=== PATIENT | female | born 1960 | race Two or more races ===

== ENCOUNTER 2016-10-27 00:26 | Emergency (ER) | payer OTHER ==
[2016-10-27] MEDS ORDERED: Maalox 30 mL Cup PO ONE (00:30)
[2016-10-27] MEDS ORDERED: Sodium Chloride 0.9% 1,000 ML IV ONE (00:30)
[2016-10-27] MEDS ORDERED: Donnatal Liq 5 ML UDC PO ONE (00:30)
--- NOTE | 2016-10-27 00:30 | ED Physician Chart ---
Chief Complaint/HPI - Patient Information Date Seen:: 10/27/16 Time Seen:: 00:30 Chief Complaint:: abdominal pain History of Present Illness:: 56-year-old female history of hypertension, complains of acute, severe, 10 out of 10, nonradiating, upper abdominal/epigastric pain that started about 1 hour prior to arrival to the ER. Associated nausea but no vomiting. Historian:: Patient Review:: Nurse's Note Reviewed Review of Systems - Review of Systems Other: Complete system review otherwise unremarkable except as noted in HPI. Past Medical History - Past Medical History Past Medical History: HTN Family History: None Social History: Non Smoker, No Alcohol, No Drug Use, Employed Surgical History: Cholecystectomy, Psychiatricy History: None Medication: Reviewed Family Medical History - Family Member Mother History Unknown: Yes Ethnicity: Physical Exam - Physical Examination Other:: INITIAL VITAL SIGNS: Reviewed by me GENERAL: Alert and interactive. No acute distress HEAD: Head is normocephalic and atraumatic EYES: EOMI. . No scleral icterus. No conjunctival injection ENT: Moist mucous membranes. NECK: Supple. No masses. Full range of motion RESPIRATORY: No tachypnea. Clear breath sounds bilaterally. No wheezing, rales, or rhonchi CV: Regular rate and rhythm. No murmurs, rubs, or gallops ABDOMEN: Soft, non-distended, tenderness to palpation of the epigastric region. No guarding. No rebound. No masses. EXTREMITIES: No deformity. No cyanosis. No edema. SKIN: Warm and dry. No obvious rashes. NEUROLOGIC: Alert and oriented. Face is symmetric. Speech is normal. Moves all extremities equally. Motor and sensory distally intact. Labs/Radiology/EKG Results - Lab Results Results: Lab Results 10/27/16 10/27/16 10/27/16 Range/Units 00:45 00:45 00:52 WBC 9.5 (4.8-10.8) Th/cmm RBC 4.27 (3.80-5.10) Mil/cmm Hgb 13.2 (11.7-15.5) gm/dL Hct 38.9 (35.0-45.0) % MCV 91.0 (81-100) fl MCH 31.0 (27.0-31.0) pg MCHC Differential 34.0 (28.0-36.0) pg RDW 13.3 (11.5-20.0) % Plt Count 252 (150-400) Th/cmm MPV 7.9 fl Neutrophils % 62.4 (40.0-80.0) % Lymphocytes % 26.8 (20.0-50.0) % Monocytes % 6.3 (2.0-10.0) % Eosinophils % 3.9 (0.0-5.0) % Basophils % 0.6 (0.0-2.0) % Sodium (136-145) mEq/L Potassium (3.5-5.1) mEq/L Chloride (98-107) mEq/L Carbon Dioxide (21.0-31.0) mEq/L Anion Gap (7.0-16.0) BUN (7-25) mg/dL Creatinine (0.6-1.2) mg/dL Est GFR ( Amer) (>90) ml/min Est GFR (Non-Af Amer) ml/min BUN/Creatinine Ratio Glucose (70-105) mg/dL Whole Bld Lactic Acid (0.60-1.99) mmol/L Calcium (8.6-10.3) mg/dL Total Bilirubin (0.3-1.0) mg/dL AST (13-39) U/L ALT (7-52) U/L Alkaline Phosphatase (34-104) U/L Total Protein (6.0-8.3) gm/dL Albumin (3.7-5.3) gm/dL Globulin gm/dL Albumin/Globulin Ratio (1.0-1.8) Amylase (29-103) U/L Lipase (11-82) U/L Urine Source CLEAN C Urine Color YELLOW Urine Clarity HAZY (CLEAR) Urine pH 6.5 Ur Specific [place] 1.020 (1.005-1.030) Urine Protein NEGATIVE (NEGATIVE) mg/dL Urine Glucose (UA) NEGATIVE (NEGATIVE) mg/dL Urine Ketones NEGATIVE (NEGATIVE) mg/dL Urine Blood SMALL H (NEGATIVE) Urine Nitrate NEGATIVE (NEGATIVE) Urine Bilirubin NEGATIVE (NEGATIVE) Urine Urobilinogen 0.2 (0.2 - 1.0) E.U./dL Ur Leukocyte Esterase NEGATIVE (NEGATIVE) Urine RBC 0-2 (0-5) /hpf Urine WBC 2-5 (0-5) /hpf Ur Epithelial Cells MODERATE (FEW) /lpf Urine Bacteria MODERATE (NONE SEEN) /hpf Urine Test NEGATIVE 10/27/16 10/27/16 Range/Units 00:52 00:52 WBC (4.8-10.8) Th/cmm RBC (3.80-5.10) Mil/cmm Hgb (11.7-15.5) gm/dL Hct (35.0-45.0) % MCV (81-100) fl MCH (27.0-31.0) pg MCHC Differential (28.0-36.0) pg RDW (11.5-20.0) % Plt Count (150-400) Th/cmm MPV fl Neutrophils % (40.0-80.0) % Lymphocytes % (20.0-50.0) % Monocytes % (2.0-10.0) % Eosinophils % (0.0-5.0) % Basophils % (0.0-2.0) % Sodium 135 L (136-145) mEq/L Potassium 3.8 (3.5-5.1) mEq/L Chloride 102 (98-107) mEq/L Carbon Dioxide 24.4 (21.0-31.0) mEq/L Anion Gap 12.4 (7.0-16.0) BUN 13 (7-25) mg/dL Creatinine 0.9 (0.6-1.2) mg/dL Est GFR ( Amer) > 60.0 (>90) ml/min Est GFR (Non-Af Amer) > 60.0 ml/min BUN/Creatinine Ratio 14.4 Glucose 127 H (70-105) mg/dL Whole Bld Lactic Acid 1.39 (0.60-1.99) mmol/L Calcium 9.3 (8.6-10.3) mg/dL Total Bilirubin 0.5 (0.3-1.0) mg/dL AST 35 (13-39) U/L ALT 25 (7-52) U/L Alkaline Phosphatase 48 (34-104) U/L Total Protein 7.5 (6.0-8.3) gm/dL Albumin 4.3 (3.7-5.3) gm/dL Globulin 3.2 gm/dL Albumin/Globulin Ratio 1.3 (1.0-1.8) Amylase 57 (29-103) U/L Lipase 19 (11-82) U/L Urine Source Urine Color Urine Clarity (CLEAR) Urine pH Ur Specific [place] (1.005-1.030) Urine Protein (NEGATIVE) mg/dL Urine Glucose (UA) (NEGATIVE) mg/dL Urine Ketones (NEGATIVE) mg/dL Urine Blood (NEGATIVE) Urine Nitrate (NEGATIVE) Urine Bilirubin (NEGATIVE) Urine Urobilinogen (0.2 - 1.0) E.U./dL Ur Leukocyte Esterase (NEGATIVE) Urine RBC (0-5) /hpf Urine WBC (0-5) /hpf Ur Epithelial Cells (FEW) /lpf Urine Bacteria (NONE SEEN) /hpf Urine Test - Radiology Results Results: CT abdomen and pelvis without contrast preliminary report per radiology NAD - EKG Interpretations Comments:: 12-lead EKG Interpretation by Steve Muñoz MD: Normal Sinus Rhythm with ventricular rate of 68 beats per minute Normal axis Normal intervals No acute ST or T wave changes. No obvious STEMI ED Septic Shock - . Is Septic Shock (SBP<90, OR Lactate>4 mmol\L) present?: No Reassessment (Disposition) - Reassessment Reassessment:: Patient had prior cholecystectomy. Pain is epigastric she does have some associated nausea. Received IV normal saline, Compazine, Decadron, Toradol. Symptoms greatly improved. Received by mouth GI cocktail. Appears to have an acute attack of gastritis. Prescribed Pepcid and Zofran. Follow up PCP 1-2 days. Return to ER precautions given. Patient understands and agrees with the plan. The patient was re-evaluated after ED treatment and stabilizing measures, and symptoms have improved. On re-examination, patient resting in no distress, stable vital signs, reports feeling better and safe for discharge with outpatient follow up with PMD in 1-2 days. Patient given return precautions. Reassessment Condition:: Improved - Diagnosis Diagnosis:: Acute gastritis Hypertension Hyponatremia - Aftercare/Follow up Instructions Aftercare/Follow-Up Instructions:: Counseled pt regarding lab results/diagnosis & need follow up, Refer to Discharge Instructions Medication Prescribed:: Pepcid Zofran - Patient Disposition Discharge/Transfer:: Home Time:: 01:19 Condition at Disposition:: Improved ED Discharge Plan - Patient Disposition Admit/Discharge/Transfer: PT DISCHARGED HOME Condition at Disposition: Improved Instructions: Gastritis, Adult, [id number]
[2016-10-27] MEDS ORDERED: Prochlorperazine 5 mg/mL 2mL Vial IVP STA (00:32)
[2016-10-27] MEDS ORDERED: Dexamethasone Sodium Phos 4 mg/mL Vial IVP STA (00:32)
[2016-10-27 01:05] LABS: % BASOPHILS 0.6 % (0.0-2.0); % EOSINOPHILS 3.9 % (0.0-5.0); % LYMPHOCYTES 26.8 % (20.0-50.0); % MONOCYTES 6.3 % (2.0-10.0); % NEUTROPHILS 62.4 % (40.0-80.0); HEMATOCRIT 38.9 % (35.0-45.0); HEMOGLOBIN 13.2 gm/dL (11.7-15.5); MEAN PLATELET VOLUME 7.9 fl; NEUTROPHILE ABSOLUTE 5.9 Th/cmm (1.8-8.0); PLATELET COUNT 252 Th/cmm (150-400); RED BLOOD COUNT 4.27 Mil/cmm (3.80-5.10); RED CELL DISTRIBUTION WIDTH 13.3 % (11.5-20.0); WHITE BLOOD COUNT 9.5 Th/cmm (4.8-10.8)
[2016-10-27 01:16] LABS: URINE BILIRUBIN NEGATIVE (NEGATIVE); URINE COLOR YELLOW; URINE GLUCOSE (UA) NEGATIVE (NEGATIVE); URINE KETONE NEGATIVE (NEGATIVE)
[2016-10-27 01:17] LABS: URINE BACTERIA MODERATE /hpf (NONE SEEN); URINE BLOOD SMALL (NEGATIVE); URINE EPITHELIAL CELLS MODERATE /lpf (FEW); URINE PH 6.5; URINE PROTEIN NEGATIVE (NEGATIVE); URINE RBC 0-2 /hpf (0-5); URINE UROBILINOGEN 0.2 E.U./dL (0.2 - 1.0)
[2016-10-27] MEDS ORDERED: Maalox 30 mL Cup ONE (01:18)
[2016-10-27 01:21] LABS: ALB/GLOB RATIO 1.3 (1.0-1.8); ALKALINE PHOSPHATASE 48 U/L (34-104); AMYLASE SERUM 57 U/L (29-103); ANION GAP 12.4 (7.0-16.0); BILIRUBIN,TOTAL 0.5 mg/dL (0.3-1.0); BUN - UREA NITROGEN 13 mg/dL (7-25); BUN/CREATININE RATIO 14.4; CALCIUM SERUM 9.3 mg/dL (8.6-10.3); CARBON DIOXIDE 24.4 mEq/L (21.0-31.0); CHLORIDE 102 mEq/L (98-107); CREATININE - SERUM 0.9 mg/dL (0.6-1.2); GLUCOSE 127 mg/dL (70-105); LIPASE 19 U/L (11-82); POTASSIUM SERUM 3.8 mEq/L (3.5-5.1); SGOT 35 U/L (13-39); SGPT/ALT 25 U/L (7-52); SODIUM SERUM 135 mEq/L (136-145)
[2016-10-27] MEDS ORDERED: Donnatal Liq 5 ML UDC ONE (01:26)
[2016-10-27] MEDS ORDERED: Prochlorperazine 5 mg/mL 2mL Vial ONE (01:26)
[2016-10-27] MEDS ORDERED: Dexamethasone Sodium Phos 10 mg/mL PF Vial ONE (01:27)
--- NOTE | 2016-10-27 09:48 | Diagnostic Imaging Report ---
CT scan abdomen and pelvis without intravenous contrast HISTORY: Pain Total DLP equals 868 CTDI equals 17.1 Axial sections were obtained from the xiphoid process down to the pubic symphysis. The liver exhibits a homogeneous parenchyma. No focal lesions. The spleen appears normal. Surgical clips are seen in the deanna hepatis region consistent with a prior cholecystectomy. No focal abnormality seen in the region of the pancreas. There is an approximate 6.5 cm cyst extending off the upper lateral cortex of the right kidney. No hydronephrosis. Left kidney is unremarkable. The exam of the pelvis demonstrates preservation of normal fat planes. No abnormal soft tissue masses or abnormal fluid collections. IMPRESSION: 1. No acute abnormalities 2. Findings of a prior cholecystectomy 3. Right renal cyst
== END 2016-10-27 01:45 | disposition home or self-care (01) ==
LOC: ER 00:26
DX: K29.00 Acute gastritis without bleeding (principal); I10 Essential (primary) hypertension; E87.1 Hypo-osmolality and hyponatremia; Z90.49 Acquired absence of other specified parts of digestive tract
CPT/HCPCS: 99285; 96374; 96375; 93005; 74176; 36415; 83605; 85025; 81001; 82150; 81025; 83690; 80053; 87040 ×2; J1885; J2405; J0780; J7030